=== PATIENT | male | born 1960 | race Caucasian/White ===

== ENCOUNTER → 2021-10-05 12:38 | Outpatient (CLI) | payer MEDICARE, SELFPAY ==
--- NOTE | ~2021-10-05 | XR_ITS ---
XR lumbar spine 6V w bending DATE: 10/05/2021 13:25 INDICATION: Low back pain TECHNIQUE: Standing AP, bilateral oblique and lateral views. Standing lateral flexion and extension v iews. Standing coned lateral lumbosacral view. COMPARISON: None FINDINGS: There is approximate 28 degrees rotatory dextroscoliosis measured from T12 to L4. There is osteopenia. No spondylolysis is noted. There is degenerative changes apophyseal joints with associated grade 1 anterolisthesis at L4-5. Multilevel degenerative disc disease, most severe at L2-3, with associated mild retrolisthesis. There is severe degenerative disc disease of the right at L4-5. No fracture or bone destruction is evident. The lumbar pedicles appear intact. The sacroiliac joints appear normal. Status post cholecystectomy. IMPRESSION: Rotatory dextroscoliosis Multilevel degenerative disc disease, most pronounced at L2-3 and L4-5 Grade 1 anterolisthesis at L4-5 Osteopenia Reviewed, dictated and finalized at location A.
== END ==
PROVIDERS: Visit Provider Orthopaedic Surgery
DX: M51.36 Other intervertebral disc degeneration, lumbar region (principal); M85.88 Other specified disorders of bone density and structure, other site
CPT/HCPCS: 72114